=== PATIENT | female | born 1970 | race American Indian/Alaskan Native ===

== ENCOUNTER 2017-04-29 17:39 | Emergency (ER) | payer OTHER ==
[2017-04-29 17:54] VITALS: BP 141/93
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
== END 2017-04-29 21:59 | disposition home or self-care (01) ==
LOC: ED 17:39
DX: M54.9 Dorsalgia, unspecified (principal); R51 Headache; M54.2 Cervicalgia
CPT/HCPCS: 70450; 72072; 72100; 72125; 81025; 99285